=== PATIENT | female | born 1970 | race African-American/Black ===

== ENCOUNTER 2017-06-12 10:22 | Emergency (ER) | payer OTHER ==
[~2017-06-12] VITALS: Ht 177.8 cm; Wt 95.0 kg
[2017-06-12] MEDS ORDERED: METF500T4 PO (10:30)
[2017-06-12] MEDS ORDERED: GLIP5TAB11 PO (10:30)
[2017-06-12] MEDS ORDERED: AMLO-512 PO (10:30)
[2017-06-12 10:38] LABS: GLUCOSE,POINT OF CARE 299 MG/DL (70-110)
[2017-06-12] MEDS ORDERED: GLIP10 PO (11:28)
[2017-06-12] MEDS ORDERED: HYDROCODONE/ACETAMINOPHEN 5-325 MG TABLET PO ONE (11:30)
[2017-06-12 11:48] LABS: EOSINOPHILS % (AUTO) 2.5 % (1.0-6.0); HEMATOCRIT 40.7 % (36-46); HEMOGLOBIN 13.8 g/dL (12.0-16.0); LYMPHOCYTES # (AUTO) 2.5 K/uL (1.0-4.8); LYMPHOCYTES % (AUTO) 39.5 % (22.0-44.0); MEAN CORPUSCULAR HGB CONC 33.9 G/dL (31.0-37.0); MEAN CORPUSCULAR VOLUME 88 fL (80-100); MONOCYTES # (AUTO) 0.3 K/uL (0.1-1.0); MONOCYTES % (AUTO) 4.4 % (2.0-9.0); NEUTROPHILS # (AUTO) 3.3 K/uL (1.8-7.7); NEUTROPHILS % (AUTO) 52.6 % (40.0-70.0); PLATELET COUNT (AUTO) 264 K/uL (150-450); RED CELL DISTRIBUTION WIDTH 14.8 % (11.5-14.5); WHITE BLOOD COUNT (AUTO) 6.2 K/uL (4.5-11.0)
[2017-06-12 12:01] LABS: ANION GAP 8 mmol/L (8-16); CARBON DIOXIDE 28 mmol/L (22-29); CHLORIDE 99 mmol/L (98-107); CREATININE 0.77 mg/dL (0.60-1.30); GLOMERULAR FILTR. RATE CALC > 60 mL/min (>60); POTASSIUM 3.5 mmol/L (3.5-5.1); SODIUM SERUM 135 mmol/L (136-145); UREA NITROGEN, BLOOD 8 mg/dL (7-18)
[2017-06-12] MEDS: HydrALAZINE HCL 20 MG/ML VIAL IVP ONE ×2 (12:05→12:11)
[2017-06-12 12:07] LABS: ALANINE AMINOTRANSFERASE 21 U/L (12-78); ALBUMIN 3.6 g/dL (3.4-5.0); ASPARTATE AMINOTRANSFERASE 13 U/L (15-37); BILIRUBIN,TOTAL 0.2 mg/dL (0.1-1.0); TOTAL PROTEIN, SERUM 8.1 g/dL (6.4-8.2)
[2017-06-12 13:15] VITALS: BP 134/82
== END 2017-06-12 13:35 | disposition home or self-care (01) ==
LOC: EMS 10:23
DX: I10 Essential (primary) hypertension (principal); E11.9 Type 2 diabetes mellitus without complications; F17.210 Nicotine dependence, cigarettes, uncomplicated; Z91.14 Patient's other noncompliance with medication regimen; Z79.899 Other long term (current) drug therapy; Z90.49 Acquired absence of other specified parts of digestive tract; Z98.890 Other specified postprocedural states
CPT/HCPCS: 36415; 70450; 80053; 82962; 85025; 93005; 99285; J0360

== ENCOUNTER 2019-10-16 15:40 | Emergency (ER) | payer OTHER ==
[~2019-10-16] VITALS: Ht 177.8 cm; Wt 81.0 kg
[~2019-10-16 15:40] MED LIST: AMLO10TA7 PO; GLIP10 PO; METF-960 PO
[2019-10-16 17:00] VITALS: BP 165/98
== END 2019-10-16 17:25 | disposition home or self-care (01) ==
LOC: EMS 15:42
DX: F41.9 Anxiety disorder, unspecified (principal); E11.9 Type 2 diabetes mellitus without complications; I10 Essential (primary) hypertension; R42 Dizziness and giddiness; B34.9 Viral infection, unspecified; F17.210 Nicotine dependence, cigarettes, uncomplicated; F12.90 Cannabis use, unspecified, uncomplicated; Z03.818 Encounter for observation for suspected exposure to other biological agents ruled out; Z90.89 Acquired absence of other organs; Z79.84 Long term (current) use of oral hypoglycemic drugs
CPT/HCPCS: 87635; 99406